=== PATIENT | female | born 1960 | race Caucasian/White ===

== ENCOUNTER 2017-08-24 16:35 | Inpatient (IN) | payer MEDICARE, MEDICAID ==
[2017-08-24] MEDS ORDERED: Acetaminophen 500 MG TAB PO ONE (17:23)
[2017-08-24 18:01] LABS: % BASOPHILS 0.2 % (0.0-2.0); % LYMPHOCYTES 21.2 % (20.0-50.0); % MONOCYTES 5.8 % (2.0-10.0); % NEUTROPHILS 70.8 % (40.0-80.0); EOSINOPHILE ABSOLUTE 0.1 Th/cmm (0.1-0.4); HEMATOCRIT 41.1 % (41.0-60); HEMOGLOBIN 13.9 gm/dL (12-16); LYMPHOCYTE ABSOLUTE 1.4 Th/cmm (1.5-3.0); MEAN CELL VOLUME 95.5 fl (81-100); MEAN CORPUSCULAR HEMOGLOBIN 32.3 pg (27.0-31.0); MEAN CORPUSCULAR HGB CONC 33.8 pg (28.0-36.0); MEAN PLATELET VOLUME 8.8 fl; MONOCYTE ABSOLUTE 0.4 Th/cmm (0.3-1.0); NEUTROPHILE ABSOLUTE 4.5 Th/cmm (1.8-8.0); PLATELET COUNT 251 Th/cmm (150-400); RED BLOOD COUNT 4.31 Mil/cmm (3.80-5.10); RED CELL DISTRIBUTION WIDTH 12.2 % (11.5-20.0); WHITE BLOOD COUNT 6.4 Th/cmm (4.8-10.8)
[2017-08-24 18:18] LABS: ALB/GLOB RATIO 2.1 (1.0-1.8); ALBUMIN 4.3 gm/dL (3.7-5.3); ALKALINE PHOSPHATASE 89 U/L (34-104); ANION GAP 11.1 (7.0-16.0); BILIRUBIN,DIRECT 0.15 mg/dL (0.0-0.2); BILIRUBIN,TOTAL 0.6 mg/dL (0.3-1.0); BUN - UREA NITROGEN 11 mg/dL (7-25); CALCIUM SERUM 9.4 mg/dL (8.6-10.3); CARBON DIOXIDE 26.6 mEq/L (21.0-31.0); CHLORIDE 106 mEq/L (98-107); CREATININE - SERUM 0.7 mg/dL (0.6-1.2); GFR AFRICAN-AMERICAN > 60.0 ml/min (>90); GFR NON AFRICAN-AMERICAN > 60.0 ml/min; GLUCOSE 117 mg/dL (70-105); MAGNESIUM 2.2 mg/dL (1.9-2.7); POTASSIUM SERUM 3.7 mEq/L (3.5-5.1); SGOT 13 U/L (13-39); SGPT/ALT 4 U/L (7-52); SODIUM SERUM 140 mEq/L (136-145); TOTAL PROTEIN,SERUM 6.4 gm/dL (6.0-8.3)
--- NOTE | 2017-08-24 18:34 | ER Physician Documentation ---
DATE OF SERVICE: ADDENDUM The vital signs taken shows 98.8, pulse 88, respirations 16, blood pressure 119/68, oxygen saturation 97. Height is 5 feet 2 inches, weighing 124 pounds The patient is DNR. ALLERGIES: THE PATIENT IS ALLERGIC TO DYE AND CONTRAST, what happens with that is not known, but when dye contrast used, one should be really cautious in doing procedures in which contrast media are used. FINAL DIAGNOSES: Depression, suicidal tendency, parkinsonism, hypertension, depression, history of falls, schizophrenia, , cataract, atrial flutter, anxiety, superficial deep brain stimulator. The patient came from [facility]. The patient's doctor's name is Dr. Analisa Murillo. Evaluation of suicidal ideation with plan, strangulation cord, etc. These are the things that came. The vital signs that came from the other place also essentially is the same. Final diagnosis that came from the other hospital that summarizes Parkinson's disease, presence of functional implant, unspecified abnormalities of gait and mobility, muscle weakness, unspecified atrial flutter, essential hypertension, major depressive disorder, recurrent and unspecified schizophrenia, unspecified anxiety disorder, unspecified bacteriuria, unspecified cataracts, history of falling, difficulty in walking, not elsewhere classified dysphonia, dysphagia, mild cognitive impairment worsening Parkinson's disease, azotemia, gait abnormality, general muscle weakness, hyperglycemia, anorexia, hypertension, schizophrenia. I got some lab results from the other [facility] in which the liver function test appears to be normal. Cholesterol 220. HDL and Triglycerides are normal. LDL is slightly high at 164, that means the patient would need some cholesterol lowering medications. CBC was within normal limits. This was done on 08/03, so actually essentially the patient's labs, etc. are within normal limits. The patient will be admitted under Dr. Rand and Dr. Sahu, I believe psychiatric names. Those are the names given in case if the patient needs to be admitted. Psychiatric before was Dr. Maye Barnett. There are things that were not available before but are now available, so I dictated out. JOB# [id number]
--- NOTE | 2017-08-24 19:06 | Transfer Summary ---
DATE OF TRANSFER: She is for psych eval. All the lab results are normal. Hence, the patient is medically cleared to go to psychiatric floor. JOB# [id number]
--- NOTE | 2017-08-24 19:13 | ER Physician Documentation ---
DATE OF SERVICE: 08/24/2017 EMERGENCY ROOM EVALUATION AND TREATMENT The patient is DNR. This patient came from a psychiatric unit, I think she came from the [facility] and the patient has a psychiatric problem. The patient's chief complaint is she hears voices and telling her to kill herself, but she does want to kill herself and today is more stronger that they are telling her to kill herself, but she does not want to kill, so she came to the hospital. HISTORY OF PRESENT ILLNESS: The patient has been in [facility] for 1 year, before that 2 different places, she had been at 2-1/2 years [address] The patient's has . The patient has no children. The patient has arthritis in both knee joints. She has Parkinson's disease. The patient cannot walk, sometimes she can walk with the help of the walker, at other time she cannot walk. The patient has this condition for 1 year, sometimes more, sometimes less. The patient is on multiple medications, I will give you that history of present illness, essentially same as I mentioned earlier. She has Parkinson's disease. She has depression. She has psychosis. She has allergy and she takes Flovas. She has hypertension. She has some pain in the knee for which she takes Jean every 6 hourly 5/325 p.r.n. for pain. REVIEW OF SYSTEMS: EYES: No history of double vision, blurring or blindness. CENTRAL NERVOUS SYSTEM: Parkinson's disease, depression, voices and they tell him to kill herself, but she does want to kill herself, so she is here. The patient has depressions for sometime. CONSTITUTIONAL: No complaint except for both knee joints, right more than the left. Sometimes, Parkinson's gives her a lot of shaking. The patient's constitutional is otherwise benign and negative. ENT: As I mentioned earlier. PULMONARY: No history of pneumonia, TB, pulmonary embolism, COPD, emphysema, bronchitis. She does not smoke, does not drink, does not take any illicit drug. BONES AND JOINTS: Has bone pain in the knee joints as well as in the legs. She cannot walk, she can walk sometimes; sometimes she cannot walk. ALLERGIES: None known. Other than the list of medications she does not come with any other medication list. HEART: No history of chest pain, myocardial infarction, rheumatic fever, valvular heart disease, pericardial disease. GASTROINTESTINAL: No history of diarrhea, nausea, vomiting. ENDOCRINE: No diabetes mellitus, no hypo or hyperthyroidism. PHYSICAL EXAMINATION: GENERAL: The patient appears to be awake, alert, oriented. She has a flat steady look of Parkinson's disease. She has tremors, she bites her nails. She has no edema over the legs. She has some tremors in the hands as well as in the legs, the right leg around the knee joint is more severe, shaking is noted, tremors are noted. Abdomen is soft, benign and negative. Liver, spleen not enlarged. No free fluid in the abdominal cavity. CHEST: Clear. No rales, rhonchi or bronchial breathing. HEART: Reveals normal heart sounds. Fourth heart sounds . Second heart sounds physiologically split. Third heart sound is absent. ABDOMEN: Soft. Liver and spleen not enlarged. No ascites. No rectal tube. No Avelar catheter. No colostomy. No other tubes. External lines catheters in her body. Central nervous system otherwise is essentially what I am mentioning holds true. A 12-point review of systems is essentially within normal limits. Generalized weakness, hearing voices, depression, living in alf, , very miserable life. CURRENT MEDICATIONS: The patient is taking amantadine 100 mg tablet 1 tablet orally once a morning for Parkinson's disease starting 05/02/2017. Aspirin 81 mg once a day for CVA prophylaxis starting 01/24/2016. Benztropine tablet 0.5 mg twice a day for EPS, clonazepam scheduled for 1 tablet 1 mg for anxiety, maybe verbalized feeling anxious. Informed consent obtained by Tim from resident. Colace twice a day for management. Hold if loose bowel, Dulcolax p.r.n., fish oil 3 times a day for supplement, Flonase as needed, ibuprofen as needed ever 6 hourly for pain, 600 mg with food, Lipitor 10 mg 1 tablet at bedtime, charity multivitamin with mineral once a day for supplement, metoprolol twice a day for hypertension, milk of magnesia as needed for constipation, Jean as needed every 6 hourly, 5/325 mg 1 tablet p.r.n. every 6 hourly for moderate pain and 10/325 every 6 hourly for severe pain. Norvasc once a day, hypertension. Remeron at bedtime. There is mirtazapine for depression manifested by insomnia, sadness. She takes multivitamin, metoprolol for hypertension she takes it. Clonazepam is for anxiety and by verbalized feeling anxious. Informed consent obtained by M.DJose G from the residents. This is scheduled for drug 1 mg table. Other medications she takes include Seroquel 25 mg. She takes about 37.5 mg 1-1/2 tablet at bedtime because of motor fluctuations related to Parkinson's. Informed consent was taken from the M.D. Sinemet, she takes carbidopa/levodopa 6 times. 2 tablet for Parkinson's disease, 25/100 carbidopa-levodopa, carbidopa is 25, levodopa is 100, 6 times per day, Sinemet-CR 50/200 mg half tablet orally every 9 p.m. for Parkinson's disease, Sinemet-CR once in the evening 50/200 mg 1 tablet orally every 10:00 p.m. for Parkinson's disease. I cannot understand the 3 hours for Sinemet 25/100, 50/200, 50/200. She takes diclofenac, which is an antiarthritis medication. There is a nonsteroidal anti-inflammatory drug for pain management for bilateral knee management and Diflucan once a day for 7 days for yeast infection p.r.n. basis. LABORATORY DATA: EKG was done, showed normal sinus rhythm and patient has tremors that are noted. CLINICAL IMPRESSION: The patient has suicidal thoughts coming in telling her that she wants to kill herself, but she knows that she does not want to kill herself. So that is why she came from [place]. OTHER DIAGNOSES: Include: 1. Parkinson's disease. 2. Depression, pain, tremors, constipation, multivitamin deficiency, anxiety, pain in the bones and the joints, Sinemet for shaking and Seroquel for depression, mood fluctuations related to Parkinson disease, diclofenac for pain management she is taking it. At the present moment will get all this medication here. We will get some general medical thing clinically. The patient's general exam is benign and negative. REVIEW OF SYSTEMS: A 12-point lead is benign and negative. CHEST: No rales, no rhonchi. No bronchial breathing. ABDOMEN: Soft, benign, negative. HEART: Normal heart sounds. No fourth heart sounds. Second heart sounds physiologically split. CENTRAL NERVOUS SYSTEM: Essentially same as I mentioned earlier. Right knee is shaking as before. The patient is in bed 3. I have ordered some x-rays and from clinical examination, I do not see any medical problems other than Parkinson's, depressions and patient has psych problems and she takes lot of psych medication. is . She lives alone. We got some labs done, let us see if the labs are anything abnormal. If it is within normal, then the patient will be sent for psych referral for admission. JOB# [id number]
[2017-08-24] MEDS ORDERED: Acetaminophen 500 MG TAB ONE (19:16)
[2017-08-24 21:41] VITALS: BP 104/54
--- NOTE | 2017-08-25 07:45 | Diagnostic Imaging Report ---
CHEST X-RAY: AP view INDICATION: Pneumonia COMPARISON: None FINDINGS: A stimulator device is seen with reservoir along the left chest wall region. This limits evaluation of the left midlung. There is no focal consolidation or pleural effusions The heart is normal in size. There is mild spinal scoliosis. IMPRESSION: No focal consolidation identified. Note stimulator device limits evaluation of the left midlung zone.
--- NOTE | 2017-08-25 08:21 | Psychosocial Evaluation ---
DATE OF SERVICE: PSYCHIATRIC INITIAL EVALUATION AND MENTAL STATUS EXAMINATION PATIENT'S AGE: 56-year-old. SEX: Female. PHYSICIAN: Said Evie Rand MD, MPH CHIEF COMPLAINT: "The voices inside my head." HISTORY OF PRESENT ILLNESS: The patient was admitted to the hospital because of increased agitation and aggressive and destructive behavior. The patient also has been having thoughts of suicide with plan to strangle herself with a cord. Also, she said that there are voices inside her head of a devil telling her to kill herself by strangling. She denies any visual hallucinations. The patient said that she has been aggressive and anxious because of those voices that has been bothering her and making her not able to relax. She has been severely depressed and anxious. PAST PSYCHIATRIC HISTORY: The patient has history of what seems to be schizoaffective disorder. The patient was hospitalized not "long time ago." PAST MEDICAL HISTORY: The patient has no major medical problems. CHEMICAL DEPENDENCY HISTORY: The patient denies. FAMILY PSYCHIATRIC AND CHEMICAL DEPENDENCY HISTORY: The patient denies. SOCIAL HISTORY: The patient lives in [facility]. The patient denies any alcohol or street drug use. She is a . She has no children. No legal issues or abuse issues. ALLERGIES: No known allergies. MENTAL STATUS EXAMINATION: The patient appears older than her stated age. Very soft tone voice with low tone and rate of speech and difficulty hearing her because of her very soft tone of voice. The patient's thought processes are mainly goal directed. The patient admits to auditory hallucinations and being paranoid, but denies any visual hallucinations. The patient admits to suicidal ideations, but denies any homicidal ideations. The patient is alert and oriented to time, place, person, and situation. Intact immediate, recent and remote memories. Fair insight. She knows that she has issues with psychiatric problems. Fair judgment. She wants to get help and compliant with taking her medications. She seems to be of average intelligence based on her verbal ability. ASSESSMENT: PRIMARY DIAGNOSIS: Schizoaffective disorder, bipolar type, with psychosis. TREATMENT PLAN: We will monitor the patient's condition and behavior closely. We will continue current medications, which is Namenda and Aricept and also will work on adjusting her psychotropic medications including antipsychotic and/or antidepressant medications if needed. ESTIMATED LENGTH OF STAY: 5-7 days. THE PATIENT'S STRENGTHS AND WEAKNESSES: The patient's strength is not clear at this time. Weaknesses are ineffective coping and her psychosis. AFTER DISCHARGE PLAN: Outpatient treatment and followup will continue as an outpatient. CRITERIA FOR DISCHARGE: The patient will not be psychotic and will stabilize psychotropic medications and will establish outpatient treatment plans. [facility]# [id number]
[2017-08-25] MEDS ORDERED: Fluticasone Propionate 0.05mg/Actuation 16gm Nasal Spray NS PRN (14:26)
[2017-08-25] MEDS ORDERED: Magnesium Hydroxide (MOM) 30 mL UDC PO PRN (14:26)
[2017-08-25] MEDS: Fish Oil 1,000 MG SGL PO SCH (16:17)
[2017-08-25] MEDS: Atorvastatin Calcium 10 MG TAB PO SCH (21:08)
--- NOTE | 2017-08-25 23:02 | History & Physical ---
ADMIT DATE: 08/24/2017 ADMITTING PHYSICIAN: Dr. Rand REASON FOR ADMISSION: Psychiatric disorders. HISTORY OF PRESENT ILLNESS: This is a 56-year-old female with underlying history of Parkinson disease, hypertension, hyperlipidemia, DJD, was admitted for Geropsych for underlying psychiatric illness by Dr. Rand. Dr. Rand requested medical H and P on this patient. The patient has complained of bilateral knee pain, otherwise no other complaints. PAST MEDICAL HISTORY: No significant. PAST SURGICAL HISTORY: No significant. SOCIAL HISTORY: Lives at nursing facility. No reported alcohol, tobacco, or street drug use. CURRENT MEDICATIONS: On amantadine, Norvasc, aspirin, Lipitor, Cogentin, Sinemet, Klonopin, diclofenac, Colace, fish oil, Flonase, Ativan, milk of magnesia, Remeron, Seroquel, and Ambien. REVIEW OF SYSTEMS: As per HPI. Other 12-point system reviewed and appeared negative. PHYSICAL EXAMINATION: VITAL SIGNS: Temperature 98.0, pulse 100, respirations 19, blood pressure 126/70. HEART: S1, S2 normal. LUNGS: Clear to auscultation. ABDOMEN: Soft. EXTREMITIES: Mild edema noted. NEUROLOGIC: Lower extremity tremor noted. AVAILABLE LABORATORY DATA: WBC 6.4, hemoglobin 13.9, platelet 251. Sodium 140, potassium 3.7, BUN 11, creatinine 0.7, magnesium 2.2, AST 13, ALT 4, TSH 0.83. ASSESSMENT: 1. Parkinson disease. 2. Hypertension. 3. Hyperlipidemia. 4. Bilateral knee degenerative joint disease. 5. Mental disorders. PLAN: The patient will be continued on her Parkinson's medications, diclofenac ____ for pain medications. Continue atorvastatin. Continue amlodipine. Monitor blood pressures. ____ psychiatrist. The patient is medically stable. Thank you Dr. Rand for allowing us to participate in the care of this patient. JOB# [id number]
[2017-08-26] MEDS: Fish Oil 1,000 MG SGL PO SCH ×2 (09:10→16:54)
[2017-08-26] MEDS: Aspirin 81mg Chewable Tab PO SCH (09:11)
[2017-08-26] MEDS: Atorvastatin Calcium 10 MG TAB PO SCH (20:37)
--- NOTE | 2017-08-26 22:37 | Progress Notes ---
DATE: SUBJECTIVE: Chart reviewed and the patient interviewed. Also discussed the patient's condition with the staff and reviewed records and labs the patient continue to be in a depressed mood and the patient still has poor eye contact, with very soft tone and rate of speech and hardly heard in spite of asking her to speak up. She also is still reporting auditory hallucinations and the patient still hears "the devil." The patient also still in a depressed mood and she is still withdrawn with minimum interaction. She also at times wants to be left alone. Otherwise, the patient is compliant with taking her medications with no side effects of medications. ASSESSMENT: The patient is still depressed and psychotic. TREATMENT PLAN: Continue to monitor her behavior and her condition closely. Also, we will increase Seroquel to 50 mg at bedtime. Also, continue to work on her psychosis and depression and we will continue to follow up. JOB# [id number]
[2017-08-27] MEDS: Aspirin 81mg Chewable Tab PO SCH (08:46)
[2017-08-27] MEDS: Fish Oil 1,000 MG SGL PO SCH ×2 (08:47→17:20)
[2017-08-27] MEDS: Atorvastatin Calcium 10 MG TAB PO SCH (20:53)
[2017-08-28] MEDS: Fish Oil 1,000 MG SGL PO SCH ×2 (09:03→16:58)
[2017-08-28] MEDS: Aspirin 81mg Chewable Tab PO SCH (09:04)
--- NOTE | 2017-08-28 15:52 | Progress Notes ---
DATE: 08/27/2017 PSYCHIATRIC PROGRESS NOTE SUBJECTIVE: Chart reviewed and the patient interviewed. Also discussed the patient's condition with the staff and reviewed records and labs. The patient continued to be depressed and anxious. The patient also still seems to be psychotic and responding to stimuli. She also is still mumbled and she still has difficulty expressing herself. She also is still reporting auditory hallucinations, but she cannot elaborate on the details of what the voice is telling her. Otherwise, the patient continued to comply with taking her medications with no side effect of medications. ASSESSMENT: The patient is still psychotic and still can be dangerous to self. TREATMENT PLAN: We will continue to monitor her behavior and her condition closely. Also, continue to work on her hallucinations and ineffective coping and continue to follow up. [facility]# [id number]
[2017-08-28] MEDS: Atorvastatin Calcium 10 MG TAB PO SCH (21:06)
--- NOTE | 2017-08-29 00:46 | Progress Notes ---
DATE: 08/26/[address] Rand. Case was discussed with staff of the patient, reviewed records. SUBJECTIVE: This is a 56-year-old female who was admitted on 08/26/2017 because of hearing voices. She is agitated, aggressive and destructive, has been having thoughts of suicide plan to strangle herself with a cord. The voices inside her head of a devil telling her to kill herself by strangling. She denies any visual hallucination, has been aggressive, anxious because of the voices, bothering her, make her not able to relax, very depressed, anxious with a history of schizoaffective disorder. The patient has a speech difficulty. It is hard to hear her because of her soft tone of voice. She admits to feeling paranoid. She has auditory hallucinations. Denies homicidal ideation. The patient however, when I talked to her, she denies that she plans to harm herself at this point, she is compliant with the medication with no side effect. She has been on Seroquel and ____ was increased to 50 mg at bedtime yesterday and Klonopin 1 mg at bedtime. Now we are increasing her Seroquel further to 50 mg twice a day with no side effects, no sedation, no nausea, no extrapyramidal symptoms and we will continue to work with patient in group therapy, milieu therapy, adjust the medication as needed. JOB# [id number]
[2017-08-29] MEDS: Aspirin 81mg Chewable Tab PO SCH (09:24)
[2017-08-29] MEDS: Fish Oil 1,000 MG SGL PO SCH (09:25)
[2017-08-29] MEDS: Atorvastatin Calcium 10 MG TAB PO SCH (21:49)
--- NOTE | 2017-08-29 22:43 | Progress Notes ---
DATE: 08/29/2017 Case discussed with staff of the patient. The patient continues responding to internal stimuli, continues to be mumbling, is very hard to understand her. I talked to staff yesterday, having had across the nurses' station where she is visible all the time. She denies that the hallucinations are command now; however, she still seems to be responding. Unable to elaborate. She can answer yes or no. She has been compliant for the medication with no side effects. I did increase her Seroquel dose yesterday to 50 mg twice a day with no side effects, no sedation, no nausea, no extrapyramidal symptoms. We will continue to work with the patient in group therapy, milieu therapy and adjust medications as needed. JOB# [id number]
[2017-08-30] MEDS: Fish Oil 1,000 MG SGL PO SCH ×3 (08:58→16:35)
[2017-08-30] MEDS: Aspirin 81mg Chewable Tab PO SCH (08:59)
[2017-08-30] MEDS: Atorvastatin Calcium 10 MG TAB PO SCH (21:57)
--- NOTE | 2017-08-31 02:04 | Progress Notes ---
DATE: 08/30/2017 Case was discussed with staff of the patient, reviewed records. The patient continues to be whispering. She reports she is unable to move her hand and I asked the staff to help her with eating and she has ____ in front of her needing to eat. She continues to be unpredictable and impulsive. She would not elaborate in any hallucination today. She continues to be unpredictable, impulsive, needing redirection. She is compliant with the medication with no side effects. I will be increasing her Seroquel dose to 75 mg twice a day to help with her psychotic symptoms and so far no side effects, no sedation, no nausea, no extrapyramidal symptoms. We will continue to work with the patient in group therapy, milieu therapy, adjust medication as needed. JOB# [id number]
[2017-08-31] MEDS: Fish Oil 1,000 MG SGL PO SCH ×2 (09:09→16:22)
[2017-08-31] MEDS: Aspirin 81mg Chewable Tab PO SCH (09:10)
[2017-08-31] MEDS: Atorvastatin Calcium 10 MG TAB PO SCH (21:08)
--- NOTE | 2017-09-01 03:44 | Progress Notes ---
DATE: 08/31/2017 Case discussed with staff of the patient. The patient continues to be hearing voices. Continues to be unpredictable, impulsive, and needing redirection. I told the staff, she is not ready to go, the family, they were able to get an order from Dr. Rand ____ medications being adjusted and increased her Seroquel yesterday to 75 mg twice a day. She is able to talk more appropriately ____ she is able to hear her voice. She reports the voices are still there. She can see somebody standing at the door. She was denying any current intent to harm herself, but she is unpredictable, impulsive and we will continue outpatient group therapy, milieu therapy, and adjust medication as needed. JOB# [id number]
[2017-09-01] MEDS: Fish Oil 1,000 MG SGL PO SCH (09:17)
[2017-09-01] MEDS: Aspirin 81mg Chewable Tab PO SCH (09:21)
--- NOTE | 2017-09-01 21:50 | Discharge Summary ---
DATE OF DISCHARGE: 09/01/2017 AGE: 56. SEX: Female. PHYSICIAN: Dr. Rand. FINAL DIAGNOSES: Primary diagnoses: Schizoaffective disorder, bipolar type, severe, with psychotic features. REASON FOR HOSPITALIZATION: The patient was admitted to the hospital from [facility] because of aggressive and destructive behavior and she was not able to follow any of instruction given. HOSPITAL COURSE: The patient continued to be agitated and in irritable mood. The patient also was having severe mood swings. She also was unpredictable and impulsive. The patient was started on Remeron in a dose of 60 mg at bedtime as well as Seroquel, the dose adjusted to 75 mg twice a day. Gradually, patient was calmer and she was less agitated and less irritable. She also was interacting more appropriately. The patient also is not suicidal or as aggressive and the patient was discharged from the hospital. Physical exam of the patient showed that the patient had no major medical problems except possible Parkinson's. AFTER DISCHARGE PLANS: The patient's hospital return to [facility] with plans for outpatient treatment and follow up there. EXPECTED OUTCOME AFTER DISCHARGE: Fair if the patient continues her outpatient treatment and follow up with discharge plans. JOB# [id number]
== END 2017-09-01 15:00 | DRG 885 ==
LOC: ER 16:35 → GERO2 19:10
PROVIDERS: ADMIT Psychiatry & Neurology Psychiatry; ATTEND Psychiatry & Neurology Psychiatry
DX: F25.0 Schizoaffective disorder, bipolar type (principal); R45.851 Suicidal ideations; I48.92 Unspecified atrial flutter; Z66 Do not resuscitate; G20 Parkinson's disease; I10 Essential (primary) hypertension; E78.5 Hyperlipidemia, unspecified; F41.9 Anxiety disorder, unspecified; K59.00 Constipation, unspecified; E56.8 Deficiency of other vitamins; H26.8 Other specified cataract; Z96.89 Presence of other specified functional implants; R82.71 Bacteriuria; R26.2 Difficulty in walking, not elsewhere classified; R49.0 Dysphonia; R13.10 Dysphagia, unspecified; G31.84 Mild cognitive impairment of uncertain or unknown etiology; R73.9 Hyperglycemia, unspecified; R63.0 Anorexia; R45.87 Impulsiveness; M17.0 Bilateral primary osteoarthritis of knee; F99 Mental disorder, not otherwise specified; Z68.22 Body mass index [BMI] 22.0-22.9, adult; Z91.041 Radiographic dye allergy status; Z91.81 History of falling
CPT/HCPCS: 36415-UA; 71045-TC; 80053-TC; 82248-TC; 83735-TC; 84443-TC; 85025-TC; 93005; Z7610